=== PATIENT | female | born 1955 | race Caucasian/White ===

== ENCOUNTER 2025-09-04 07:49 | Emergency (ER) | payer BC, SELFPAY ==
[2025-09-04 07:49] VITALS: BMI 31.8
[2025-09-04 07:53] VITALS: BP 103/53
--- NOTE | 2025-09-04 07:59 | ED.GENMED ---
History of Present Illness
General
Chief Complaint: Post Operative Problem(s)
Time Seen by Provider: 09/04/25 07:59
History of Present Illness
History of Present Illness:
FOCUSED PAST MEDICAL HISTORY
- Patient had TKA 08/23/2025
REVIEW OF OLD RECORDS
- No old records available for review
Note:
CHIEF COMPLAINT(S)
Fear of infection and experiencing weakness, diaphoresis, and dizziness.
HISTORY OF PRESENT ILLNESS
The patient is a 70-year-old female who presents with concerns regarding a possible infection following a procedure performed by Dr. Nix in his suite on [facility]. The patient initially considered going to [facility] due to proximity, but
eventually decided to seek evaluation here, following a recommendation from Dr. Crowder, who suggested this facility might offer more comprehensive care for the current issue.
The patient reports that the surgical site appeared better today compared to last night. However, approximately 20 minutes after taking a shower, she experienced weakness, diaphoresis, and dizziness, although she does not report any fever. She
mentions using medication on a regular schedule and is concerned about tenderness and intermittent pain at the surgical site.
PHYSICAL EXAM
General: Alert, no acute distress.
Skin: Warm, dry.
Head: Normocephalic, atraumatic.
Neck: Supple, trachea midline.
Eye Ears, nose, mouth and throat: Oral mucosa moist.
Cardiovascular: Normal peripheral perfusion, No edema.
Respiratory: Respirations are non-labored.
Gastrointestinal: Abdomen nondistended.
Back: Normal range of motion, Normal alignment.
Musculoskeletal: There is just slightly decreased active range of motion at the right knee into flexion however can get to over 90 degrees, there is some mild erythema more so at the inferior portion of the surgical wound, there is mild to moderate
joint effusion
Neurological: Alert and oriented to person, place, time, and situation, No focal neurological deficit observed.
Psychiatric: Cooperative, appropriate mood & affect.
PLAN
The plan includes assessing the surgical site for possible infection or complications and continue monitoring the patient for any progression of symptoms such as weakness or dizziness.
Notified [facility] orthopedics
DIFFERENTIAL DIAGNOSIS
The Differential Diagnosis includes, in no particular order and is not limited to:
1. Surgical site infection
2. Post-operative wound complication
3. Dehydration
4. Orthostatic hypotension
5. Medication side effects
6. Vestibular dysfunction
7. Anemia
8. Electrolyte imbalance
9. Benign paroxysmal positional vertigo
10. Cardiac arrhythmia
EKG
- Sinus 67, no acute ST abnormality
LABS
- White count 10.8, hemoglobin 11.4
I discussed case with Dr. Nix in [facility] Crowder came down to evaluate the patient and removed the masha and place Steri-Strips. No clear evidence of infection.
SUMMARY OF ENCOUNTER
The patient, a 70-year-old female, was seen in the emergency department for concerns of potential infection following a surgical procedure. She reported experiencing weakness, diaphoresis, and dizziness. Laboratory results showed the white blood
cell count at the higher end of normal and slightly elevated inflammatory markers, but nothing dramatically abnormal. The patient was advised to follow up with her scheduled appointment on Friday and to take it easy over the weekend. No antibiotics
were prescribed as they were deemed unnecessary at this time.
DISPOSITION
Discharge
PLAN
The patient was advised to rest and avoid exertion. She should monitor for any worsening symptoms and follow up with her scheduled appointment on Friday with Dr. Crowder. She was also advised to avoid skipping therapy and to contact the facility if
symptoms escalate.
INDEPENDENT REVIEW OF LABS AND INTERPRETATION OF TESTS
My independent review indicates that the white blood cell count was at the higher end of normal. Additionally, inflammatory markers were just slightly elevated, not presenting any significant concerns.
MEDICAL DECISION MAKING
-Complexity of Data Reviewed: Chronic conditions affecting care included surgical site infection, post-operative wound complication, dehydration, orthostatic hypotension, medication side effects, vestibular dysfunction, anemia, electrolyte
imbalance, benign paroxysmal positional vertigo, and cardiac arrhythmia.
-Data:
Category 3
Discussion of management with Dr. Nix and Dr. Crowder.
DIAGNOSIS
Post-operative observation and management of symptoms following a procedure (Z48.89)
Phy Exam
Physical Exam
Physical Exam:
See HPI
Course
Orders/Labs/Results
Orders:
Orders
09/04/25 08:08
Electrocardiogram (*1) Urgent
Reason for Study: Vertigo / Dizzy
EKG- Treatment ONCE
09/04/25 08:40
Basic Metabolic Panel Urgent
CRP [C-Reactive Protein] Urgent
Complete Blood Count/With Diff Urgent
ESR [Erythrocyte Sed Rate] Urgent
Abnormal Lab Results
09/04/25
08:40
RBC 3.91 L 10^6/uL
(4.20-5.40)
Hgb 11.4 L g/dL
(12.0-16.0)
Hct 34.8 L %
(37.0-47.0)
MCHC 32.8 L g/dL
(33.0-37.0)
Abs Immat Gran (auto) 0.1 H 10^3/uL
(0-0.05)
Absolute Neuts (auto) 7.7 H 10^3/uL
(1.4-6.5)
Absolute Monos (auto) 0.9 H 10^3/uL
(0.1-0.6)
Immature Gran % 0.6 H %
(0-0.5)
Lymphocytes % 15.7 L %
(20.5-51.1)
ESR 28 H mm/hour
(0-20)
BUN 34 H mg/dl
(7-17)
C-Reactive Protein 27.10 H mg/L
(0.0-10.00)
09/04/25 08:40
09/04/25 08:40
Vital Signs
Initial and Last Documented VS:
Initial Vital Signs
Temp Pulse Resp BP Pulse Ox
36.7 C 75 16 103/53 98
09/04/25 07:53 09/04/25 07:53 09/04/25 07:53 09/04/25 07:53 09/04/25 07:53
Last Documented Vital Signs
Temp Pulse Resp BP Pulse Ox
36.7 C 75 16 103/53 99
09/04/25 07:53 09/04/25 07:53 09/04/25 07:53 09/04/25 07:53 09/04/25 08:30
*Pulse Oximetry
SaO2: 98
Oxygen Mode of Delivery: Room air
Patient hypoxic: no
*Critical Care Note
Total Time (30-74mins, 75-104mins- exclusive of procedures): Not Applicable
ED Attending Note
-
Portions of this chart may have been created with voice recognition software.� Occasional wrong word or��sound alike� substitutions may have occurred due to the inherent limitations of voice recognition software.
Discharge Plan
Departure
Patient Disposition: Home (Routine Discharge)
Date of Disposition: 09/04/25
Time of Disposition: 10:20
Patient with high blood pressure during this ER visit?: Yes
Discharge Problem:
Post-operative pain
Instructions: Postoperative Pain (DC)
Referrals:
RAJESH FALK [Other]
Activity Restrictions/Additional Instructions:
EKG is unremarkable, basic labs unremarkable, white count is 10.8, mild elevation of sed rate and CRP. Follow-up Dr. Nix on Friday. Return here if worse or other concerns.
Interventions
Interventions:
*Risk Screen - Suicide Last Done: 09/04/25 07:53
*General Assessment Last Done: 09/04/25 08:27
*Neglect/Abuse Screening Last Done: 09/04/25 07:53
*ED- Fall Risk Assessment Last Done: 09/04/25 08:27
ED-Skin Assessment Last Done: 09/04/25 08:27
Discharge Date and Time
Print Language: [id number]
[2025-09-04 08:56] LABS: Hematocrit 34.8 % (37.0-47.0); Hemoglobin 11.4 g/dL (12.0-16.0); Mean Corp Hgb Conc. 32.8 g/dL (33.0-37.0); Mean Corpuscular Volume 89.0 fL (81.0-99.0); Nucleated Red Blood Cells % 0 %; Platelet Count 249 10^3/uL (130-400); Red Cell Dist. Width 13.6 % (11.5-14.5)
[2025-09-04 09:09] LABS: Blood Urea Nitrogen 34 mg/dl (7-17); Calcium 9.7 mg/dl (8.4-10.2); Carbon Dioxide 28 mmol/L (22-30); Chloride 103 mmol/L (98-107); Estimated Creatinine Clearance 60 ml/min; Glucose 87 mg/dl (70-99); Potassium 3.7 mmol/L (3.5-5.1); Sodium 138 mmol/L (135-145); eGFR > 60.00
[2025-09-04 09:12] LABS: C-Reactive Protein 27.10 mg/L (0.0-10.00)
--- NOTE | 2025-09-04 09:36 | W.PN.UPDATE ---
Update Note
Progress Note Update
70-year-old female 12 days out from right total knee arthroplasty with Dr. Nix on 23 August 2025. She called into our answering service last night for concern about erythema of her incision site and some increasing pain. Denies any fevers or
chills at that timeframe but does report some generalized weakness this a.m.
On exam she is neuro vastly intact. Minimal effusion. There are some redness with skin wrinkles present about the incision but well-approximated.
Recommend routine labs of CBC and CMP but include ESR and CRP for trending purposes. Suspect most likely staple irritation. Discussed differential with patient. After discussion and the amount of clinical healing we elect to continue with staple
removal and Steri-Strips applied. She will follow-up in the office for routine follow-up pending routine labs. Expected ESR and CRP will be elevated which is normal the postoperative period will consider repeating labs for trending purposes if her
clinical appearance is worsening to rule out potential deeper infection
== END 2025-09-04 10:21 | disposition home or self-care (01) ==
LOC: EMR 07:49
PROVIDERS: EMERGENCY PHYSICIAN Emergency Medicine
DX: G89.18 Other acute postprocedural pain (principal); M25.561 Pain in right knee; R53.1 Weakness; R42 Dizziness and giddiness; Z96.651 Presence of right artificial knee joint
CPT/HCPCS: 99284; 80048; 85025; 85652; 86140; 93005